=== PATIENT | male | born 1960 | race Caucasian/White ===

== ENCOUNTER 2016-10-04 08:29 | Emergency (ER) | payer OTHER ==
[2016-10-04 08:38] VITALS: TEMP 97.5; O2SAT 97; BMI 27.4
[2016-10-04] MEDS ORDERED: Sodium Chloride 0.9% 1,000 ML IV STA (08:51)
[2016-10-04 09:14] LABS: BASO # 0.1 K/uL (0.0-0.2); BASO % 0.8 % (0.0-2.0); EOS # 0.1 K/uL (0.0-0.7); EOS % 1.8 % (0.0-4.0); HEMATOCRIT 44.2 % (35.0-51.0); LYMPH # 1.4 K/uL (1.0-4.3); LYMPH % 20.1 % (20.0-40.0); MEAN CELL VOLUME 86.3 fl (80.0-94.0); MEAN CORPUSCULAR HEMOGLOBIN 30.3 pg (27.0-31.0); MEAN CORPUSCULAR HGB CONC 35.2 g/dL (33.0-37.0); MEAN PLATELET VOLUME 9.3 fl (7.2-11.7); MONO # 0.5 K/uL (0.0-0.8); MONO % 6.9 % (0.0-10.0); NEUT # 4.9 K/uL (1.8-7.0); NEUT % 70.4 % (50.0-75.0); NRBC % 0.1 % (0.0-0.0); RED CELL DISTRIBUTION WIDTH 12.6 % (11.5-14.5); WHITE BLOOD COUNT 6.9 K/uL (4.8-10.8)
--- NOTE | 2016-10-04 09:15 | ED PDOC ---
HPI: Abdomen Time Seen by Provider: 10/04/16 08:47 Chief Complaint (Nursing): Abdominal Pain Chief Complaint (Provider): Abdominal Pain History Per: Patient History/Exam Limitations: no limitations Onset/Duration Of Symptoms: Days Current Symptoms Are (Timing): Still Present Severity: Mild Location Of Pain/Discomfort: Epigastric Associated Symptoms: Nausea Alleviating Factors: None Additional Complaint(s): Patient is a 56 year old male presents to ED for 1 week up abdominal pain with nausea. Patient notes pain is epigastric in nature, admits to drinking alcohol daily with his last drink this morning. Denies rectal bleeding. Past Medical History Reviewed: Historical Data, Nursing Documentation, Vital Signs Vital Signs: Last Vital Signs Temp 97.5 F L 10/04/16 08:37 Pulse 82 10/04/16 09:16 Resp BP 133/75 10/04/16 09:16 Pulse Ox 97 10/04/16 09:24 - Medical History PMH: Diabetes, HTN - Surgical History Surgical History: No Surg Hx - Family History Family History: States: No Known Family Hx - Home Medications Home Medications: Ambulatory Orders Medication Instructions Recorded MetFORMIN [glucoPHAGE] 1,000 mg PO BID #60 tab 04/18/14 Enalapril Maleate [Vasotec] 10 mg PO DAILY #30 tab 10/03/15 Famotidine [Pepcid] 20 mg PO Q12 #20 tab 10/04/16 - Allergies Allergies/Adverse Reactions: Allergies Allergy/AdvReac Type Severity Reaction Status Date / Time No Known Allergies Allergy Unverified 04/18/14 15:48 Review of Systems ROS Statement: Except As Marked, All Systems Reviewed And Found Negative Constitutional: Negative for: Fever, Chills Gastrointestinal: Positive for: Nausea, Abdominal Pain. Negative for: Vomiting , Hematochezia, Hematemesis, Rectal Pain Genitourinary Male: Negative for: Dysuria, Frequency Musculoskeletal: Negative for: Back Pain Physical Exam - Reviewed Nursing Documentation Reviewed: Yes Vital Signs Reviewed: Yes - Physical Exam Appears: Positive for: Non-toxic, No Acute Distress Skin: Positive for: Normal Color, Warm Eye Exam: Positive for: Normal appearance Neck: Positive for: Normal, Painless ROM Cardiovascular/Chest: Positive for: Regular Rate, Rhythm. Negative for: Murmur Respiratory: Positive for: Normal Breath Sounds. Negative for: Respiratory Distress Gastrointestinal/Abdominal: Positive for: Soft, Tenderness (epigastric ). Negative for: Distended, Guarding, Rebound Back: Positive for: Normal Inspection Extremity: Positive for: Normal ROM Neurologic/Psych: Positive for: Alert, Oriented - Laboratory Results Result Diagrams: 10/04/16 09:09 10/04/16 09:09 - ECG O2 Sat by Pulse Oximetry: 97 (RA ) Pulse Ox Interpretation: Normal - Progress Re-evaluation Time: 12:09 Condition: Improved (awake alert no focal neuro deficits) Medical Decision Making Medical Decision Making: Time: 844 Initial impression: Abdominal pain Initial plan: -- EKG -- Alcohol serum -- CMP -- Troponin -- CBC -- NSF, Pepcid and Zofran Scribe Attestation: Documented by Augustina Kellogg acting as a scribe for Philippe Meyers MD MD Scribe Attestation: All medical record entries made by the Scribe were at my direction and personally dictated by me. I have reviewed the chart and agree that the record accurately reflects my personal performance of the history, physical exam, medical decision making, and the department course for this patient. I have also personally directed, reviewed, and agree with the discharge instructions and disposition. Disposition - Clinical Impression Clinical Impression: Alcohol abuse, Gastritis - Patient ED Disposition Is Patient to be Admitted: No Counseled Patient/Family Regarding: Studies Performed, Diagnosis, Need For Followup, Rx Given - Disposition Referrals: [facility] [Outside] Disposition: Routine/Home Disposition Time: 12:08 Condition: FAIR Prescriptions: Famotidine [Pepcid] 20 mg PO Q12 #20 tab Instructions: Gastritis (ED)
[2016-10-04 09:17] VITALS: BP 133/75; PULSE 82
[2016-10-04 09:26] LABS: ALB/GLOB RATIO 1.2 (1.0-2.1); ALCOHOL SERUM 135 mg/dl (0-10); ALKALINE PHOSPHATASE 149 U/L (38-126); ALT/SGPT 103 U/L (21-72); AST/SGOT 110 U/L (17-59); BILIRUBIN,TOTAL 1.8 mg/dl (0.2-1.3); BLOOD UREA NITROGEN 14 mg/dl (9-20); CALCIUM 9.2 mg/dL (8.4-10.2); CARBON DIOXIDE 26 mmol/L (22-30); CHLORIDE 97 mmol/L (98-107); GFR AFRICAN-AMERICAN > 60; GLUCOSE,RANDOM 306 mg/dL (75-110); POTASSIUM 4.2 MMOL/L (3.6-5.0); SODIUM 142 mmol/l (132-148); TOTAL PROTEIN 7.7 G/DL (6.3-8.2)
--- NOTE | 2016-10-05 08:33 | CARD ---
APPROVED REPORT EKG Measurement Heart [id number] <Conclusion> Normal sinus rhythm Nonspecific T wave abnormality Prolonged QT Abnormal ECG
== END 2016-10-04 12:33 | disposition home or self-care (01) ==
LOC: H.ER 08:29
DX: K29.70 Gastritis, unspecified, without bleeding (principal); R11.0 Nausea; F10.10 Alcohol abuse, uncomplicated; E11.9 Type 2 diabetes mellitus without complications; I10 Essential (primary) hypertension; Z79.84 Long term (current) use of oral hypoglycemic drugs; Z79.899 Other long term (current) drug therapy; R10.9 Unspecified abdominal pain